=== PATIENT | male | born 1960 ===

== ENCOUNTER → 2023-12-01 | Outpatient (CLI) | payer OTHER ==
[~2023-12-01] MED LIST: Albuterol 0.083% Neb Soln 2.5 MG/3 ML UD IH ONE; Methacholine Vial A (Clear Label Base-Cntrl) IH ONE; Methacholine Vial B (Red Label) 0.0625 MG/ML 3 ML VIAL.NEB IH ONE
== END ==
LOC: COL.CARD 09:03
DX: J45.998 Other asthma (principal)
CPT/HCPCS: J7674